=== PATIENT | female | born 1955 | race Caucasian/White ===

== ENCOUNTER 2021-09-02 09:40 | Emergency (ER) | payer BC, SELFPAY ==
--- NOTE | ~2021-09-02 | XR_ITS ---
EXAMINATION: XR chest 2V DATE: 09/02/2021 10:24 INDICATION: Cough TECHNIQUE: PA and lateral views of the chest are obtained. COMPARISON: None available FINDINGS: The lungs are free of acute opacities. There is no pleural effusion or pneumothorax. The ca rdiomediastinal silhouette is normal. There is mild thoracic spondylosis. Surgical clips in the upper abdomen on the lateral view are likely from prior cholecystectomy. IMPRESSION: 1. No acute cardiopulmonary abnormality. Reviewed, dictated and finalized at location A.
[2021-09-02 09:44] VITALS: BP 128/78; PULSE 66; RESP 20; TEMP 36.6; O2SAT 99
--- NOTE | 2021-09-02 10:12 | ED.GENADULT ---
HPI - General Adult General Chief complaint: Upper Respiratory Infection Stated complaint: cough congestion Source: patient Mode of arrival: ambulatory Limitations: no limitations History of Present Illness HPI narrative: Patient presents for evaluation of respiratory symptoms for the last 3 days. Initial symptom was sore throat. This resolved. She has experienced sinus congestion, thick yellow discharge from her nares, a nonproductive cough, wheezing, fatigue, feeling run down and chills. No fever, nausea, vomiting, diarrhea. She states she had similar symptoms in the past and was given tessalon and clindamycin, which seemed to help. 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 No personal history of COVID. She has received COVID vaccination. She does not smoke. Despite wheezing, she denies hx of asthma or COPD. Related Data Home Medications Medication Instructions Recorded Confirmed alprazolam [Xanax] 0.25 mg PO DAILY 03/06/19 09/02/21 aspirin 81 mg PO DAILY 03/06/19 09/02/21 escitalopram oxalate 10 mg PO DAILY 03/06/19 09/02/21 levothyroxine [Synthroid] 75 mcg PO DAILY 03/06/19 09/02/21 multivitamin [Daily Multi-Vitamin] 1 tablet PO DAILY 03/06/19 09/02/21 nebivolol [Bystolic] 2.5 mg PO DAILY 03/06/19 09/02/21 omeprazole 20 mg PO DAILY 03/06/19 09/02/21 Allergies Allergy/AdvReac Type Severity Reaction Status Date / Time atorvastatin Allergy Mild Muscle Pain Verified 09/02/21 10:00 cholestyramine Allergy Mild Itching Verified 09/02/21 10:00 diflunisal Allergy Unknown Unknown Verified 09/02/21 10:00 ezetimibe Allergy Unknown Muscle Pain Verified 09/02/21 10:00 Penicillins Allergy Unknown Unknown Verified 09/02/21 10:00 rosuvastatin AdvReac Mild Muscle Pain Verified 09/02/21 10:00 pravastatin AdvReac Unknown Muscle Pain Verified 09/02/21 10:00 atropine [From Lomotil] AdvReac Headache Verified 09/02/21 10:00 diphenoxylate [From Lomotil] AdvReac Headache Verified 09/02/21 10:00 VENLAFAXINE HCL Allergy Unknown Unknown Uncoded 11/08/19 15:47 Review of Systems Review of Systems: CONSTITUTIONAL: Reports chills, fatigue and feeling run down EYES: Denies visual changes, redness, or discharge. ENT: Reports sinus congestion, yellow nasal drainage and sore throat CARDIOVASCULAR: Denies chest pain, palpitations, or edema. RESPIRATORY: Reports cough. Denies SOB GASTROINTESTINAL: Denies abdominal pain, nausea, vomiting, or diarrhea. GENITOURINARY: Denies dysuria or hematuria. SKIN: Denies rash or itching. MUSCULOSKELETAL: Denies back pain, joint pain, or myalgia. NEUROLOGIC: Denies headache, numbness, dizziness, or weakness. PSYCHIATRIC: Denies anxiety or depression. [facility] Past Medical History Medical History (Updated 09/02/21 @ 10:38 by FLORENTINO Monroe, ) Anemia Anxiety Anxiety Aortic aneurysm Aortic aneurysm Aortic insufficiency Breast cyst Depression Diverticulosis GERD (gastroesophageal reflux disease) Graves disease Hemorrhoids Mitral valve prolapse Surgical History Surgical History H/O: hysterectomy History of cholecystectomy Family History Family History Mother Family history non-contributory Social History Social History Smoking status: Never smoker Substance use: never Additional occupation/education comments: Schoolteacher Gender identity (if verbalized by the patient): Female Spiritual care concerns: No Exam Narrative: GENERAL: Well-appearing, well-nourished, and in no acute distress. HEAD: Normocephalic, atraumatic. EYES: PERRLA and EOMI. ENT: Nares clear, no rhinorrhea or epistaxis. Mucous membranes moist. Oropharynx without tonsillar hypertrophy exudate or other lesions. There is posterior pharyngeal erythema. Bilateral TMs pearly mann nonbulging NECK: Sup
== END 2021-09-02 10:43 | disposition home or self-care (01) ==
PROVIDERS: Emergency Provider Nurse Practitioner
DX: J06.9 Acute upper respiratory infection, unspecified (principal); Z20.822 Contact with and (suspected) exposure to COVID-19; Z79.82 Long term (current) use of aspirin
CPT/HCPCS: 71046; 87426; 87804; 99213; C9803; G0463

== ENCOUNTER 2023-05-26 12:09 | Emergency (ER) | payer MEDICARE, OTHER, SELFPAY ==
--- NOTE | ~2023-05-26 | XR_ITS ---
EXAMINATION: XR chest 2V 05/26/2023 13:06 INDICATION: Cough PROCEDURE: 09/02/2021 COMPARISON: No prior studies for comparison. FINDINGS: The lungs are clear. The cardiomediastinal silhouette is within normal limits. There are no pleural effusions. There is no pneumothorax suspected. IMPRESSION: 1: NO ACUTE CARDIOPULMONARY DISEASE. Reviewed, dictated and finalized at location A. [employer]
[2023-05-26 12:16] VITALS: BP 126/87; PULSE 71; RESP 20; TEMP 36.8; O2SAT 100
--- NOTE | 2023-05-26 12:56 | ED.GENADULT ---
HPI - General Adult General Chief complaint: Nausea/Vomiting/Diarrhea Stated complaint: cough/weak/diarrhea Source: patient Mode of arrival: ambulatory Limitations: no limitations History of Present Illness HPI narrative: Patient presents for evaluation of generally not feeling well. She states a week ago she developed a cough which has persisted but improved. She reports generalized weakness and diarrhea. She was experiencing nausea and vomiting at the start of the month but attributed that to food poisoning. Denies any nausea at the present time. She denies sore throat, otalgia, shortness of breath or chest pain. She has an underlying history of aortic insufficiency, aortic aneurysm, Graves disease and mitral valve prolapse. She came in today because she wanted to ensure her respiratory symptoms would not affect (her) heart . She opted to come here for evaluation because she thought if she went to the ER it would put her at risk for developing pneumonia. At one point she felt like she was so weak that she may pass out. She attributes that to decreased food intake over the past week. Related Data Home Medications Medication Instructions Recorded Confirmed aspirin 81 mg chewable tablet 81 mg PO DAILY 03/06/19 05/26/23 multivitamin (Daily Multi-Vitamin 1 tablet PO DAILY 03/06/19 05/26/23 tablet) nebivolol 2.5 mg tablet (Bystolic) 2.5 mg PO DAILY 03/06/19 05/26/23 omeprazole 20 mg capsule,delayed 20 mg PO DAILY 03/06/19 05/26/23 release alprazolam 0.5 mg tablet See Rx Instructions .Route .COMPLEX 05/26/23 05/26/23 buspirone 5 mg tablet 5 mg PO BID 05/26/23 05/26/23 colestipol 1 gram tablet 2 g PO ONCE PRN Diarrhea 05/26/23 05/26/23 escitalopram oxalate 20 mg tablet 20 mg PO DAILY 05/26/23 05/26/23 levothyroxine 88 mcg tablet 88 mcg PO DAILY 05/26/23 05/26/23 (Synthroid) Allergies Allergy/AdvReac Type Severity Reaction Status Date / Time atorvastatin Allergy Mild Muscle Pain Verified 05/26/23 12:43 cholestyramine Allergy Mild Itching Verified 05/26/23 12:43 diflunisal Allergy Unknown Unknown Verified 05/26/23 12:43 ezetimibe Allergy Unknown Muscle Pain Verified 05/26/23 12:43 Penicillins Allergy Unknown Unknown Verified 05/26/23 12:43 venlafaxine [From Effexor] Allergy Unknown Verified 05/26/23 12:52 rosuvastatin AdvReac Mild Muscle Pain Verified 05/26/23 12:43 pravastatin AdvReac Unknown Muscle Pain Verified 05/26/23 12:43 atropine [From Lomotil] AdvReac Headache Verified 05/26/23 12:43 diphenoxylate [From Lomotil] AdvReac Headache Verified 05/26/23 12:43 VENLAFAXINE HCL Allergy Unknown Unknown Uncoded 05/26/23 12:43 Review of Systems Review of Systems: CONSTITUTIONAL: reports fatigue.Denies fever, chills, or sweats. EYES: Denies visual changes, redness, or discharge. ENT: Denies rhinorrhea, congestion, sore throat, or otalgia. CARDIOVASCULAR: Denies chest pain, palpitations, or edema. RESPIRATORY: Reports cough which is improving. Denies shortness of breath. GASTROINTESTINAL: Reports nausea and vomiting earlier this month, now resolved. Reports diarrhea. Denies abdominal pain GENITOURINARY: Denies dysuria or hematuria. SKIN: Denies rash or itching. MUSCULOSKELETAL: Denies back pain, joint pain, or myalgia. NEUROLOGIC: Reports weakness.Denies headache, numbness, or dizziness PSYCHIATRIC: Denies anxiety or depression. [facility] Past Medical History Medical History Anemia Anxiety Anxiety Aortic aneurysm Aortic aneurysm Aortic insufficiency Breast cyst Depression Diverticulosis GERD (gastroesophageal reflux disease) Graves disease Hemorrhoids Mitral valve prolapse Surgical History Surgical History H/O: hysterectomy History of cholecystectomy Family History Family History Mother Family history non-contributory
== END 2023-05-26 13:45 | disposition home or self-care (01) ==
PROVIDERS: Emergency Provider Nurse Practitioner; PCP Physician Assistant
DX: B34.9 Viral infection, unspecified (principal); Z20.822 Contact with and (suspected) exposure to COVID-19; I35.1 Nonrheumatic aortic (valve) insufficiency; K21.9 Gastro-esophageal reflux disease without esophagitis; E05.00 Thyrotoxicosis with diffuse goiter without thyrotoxic crisis or storm; I34.1 Nonrheumatic mitral (valve) prolapse; F41.9 Anxiety disorder, unspecified; F32.A Depression, unspecified; D64.9 Anemia, unspecified
CPT/HCPCS: 71046; 87426; 87804; 99213; G0463

== ENCOUNTER 2024-04-01 12:21 | Emergency (ER) | payer MEDICARE, SELFPAY ==
[2024-04-01 12:31] VITALS: BP 112/89; PULSE 75; RESP 18; TEMP 36.4; O2SAT 100
== END 2024-04-01 12:36 | disposition left against medical advice (07) ==
LOC: EXPBETH 12:28
PROVIDERS: Emergency Provider Nurse Practitioner; PCP Physician Assistant
DX: R79.0 Abnormal level of blood mineral (principal)
CPT/HCPCS: 99199